=== PATIENT | male | born 1985 | race Caucasian/White ===

== ENCOUNTER 2021-09-19 08:45 | Emergency (ER) | payer OTHER, SELFPAY ==
[2021-09-19 08:52] VITALS: BP 159/87; PULSE 71; RESP 16; TEMP 36.8; O2SAT 98; BMI 24.4
[2021-09-19 09:01] VITALS: BP 159/87; PULSE 71; RESP 16; TEMP 36.8; O2SAT 98
--- NOTE | 2021-09-19 09:08 | CTR_ITS ---
PROCEDURE INFORMATION: Exam: CTA Chest With Contrast Exam date and time: 09/19/2021 10:36 AM Age: 36 years old Clinical indication: Chest pressure and sternal or substernal pain; Additional info: Cp with strong fh of dissection TECHNIQUE: Imaging protocol: Computed tomographic angiography of the chest with contrast. 3D rendering (Not supervised by radiologist): MIP and/or 3D reconstructed images were created by the technologist. Total images: 511 Radiation optimization: All CT scans at this facility use at least one of these dose optimization techniques: automated exposure control; mA and/or kV adjustment per patient size (includes targeted exams where dose is matched to clinical indication); or iterative reconstruction. Contrast material: OMNIPAQUE 350; Contrast volume: 95 ml; Contrast route: INTRAVENOUS (IV); COMPARISON: CR Chest 2 views* [id number] 04/21/2017 1:32 PM RADIATION DOSE METRICS: Total DLP (mGy-cm): 1330.61 FINDINGS: Pulmonary arteries: Pulmonary artery evaluation of good technical quality with no pulmonary artery embolism identified. Aorta: No aortic aneurysm nor dissection. Lungs: Unremarkable. No consolidation. No masses. Pleural spaces: Unremarkable. No pneumothorax. No pleural effusion. Heart: Unremarkable. No cardiomegaly. No pericardial effusion. Lymph nodes: Unremarkable. No enlarged lymph nodes. Bones/joints: Unremarkable. No acute fracture. Soft tissues: Unremarkable. CT/CT angio chest [id number] IMPRESSION: 1. No aortic aneurysm nor dissection. 2. No pulmonary artery embolism identified. 3. No acute process identified.
--- NOTE | 2021-09-19 09:08 | ECG_ITS ---
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 Measurements Intervals [place] Rate: 64 P: 43 LA: 149 QRS: 133 QRSD: 100 T: 56 QT: 398 QTc: 414 Interpretive Statements SINUS RHYTHM INCOMPLETE RIGHT BUNDLE BRANCH BLOCK [90+ ms QRS DURATION, TERMINAL R IN V1/V2, 40+ ms S IN I/aVL/V4/V5/V6] POSSIBLE RIGHT VENTRICULAR HYPERTROPHY [SOME/ALL OF: PROMINENT R IN V1, LATE TRANSITION, RAD, JAIME, SSS] NONSPECIFIC ST ELEVATION [0.05+ mV ST ELEVATION] No previous ECG available for comparison Electronically Signed On 09-19-2021 20:59:24 CDT by Alyssa Killian M.D. [id number] f
--- NOTE | 2021-09-19 09:09 | ED_ITS ---
HPI - Chest Pain General: Chief Complaint: Chest Pain Stated Complaint: Chest Pain Time Seen by Provider: 09/19/21 08:52 History of Present Illness: Patient comes in with chest pain. States he started having midsternal chest pain 2 days ago that has been constant, pressure, worse with swallowing or deep inspiration. States he has a strong family history of coronary artery disease as well as aortic dissection. States that his mother was in her early 50s when she had an aortic dissection. Denies any cold symptoms including no cough, congestion, shortness of breath, vomiting, diarrhea. Associated symptoms: Deny abdominal pain, dyspnea, fever(s), nausea, palpitations or vomiting Review of Systems Const: Denies: fever(s) or body aches Eyes: Denies: change in vision or blurry vision ENMT: Denies: throat pain or odynophagia Card: Reports: chest pain; Denies: palpitations Resp: Denies: dyspnea or productive cough GI: Denies: abdominal pain, nausea or vomiting : Denies: flank pain or dysuria Musc: Denies: neck pain or back pain Skin/Breast: Denies: rash or pruritus Neuro: Denies: headache(s) or numbness in extremities Psych: Denies: anxiety or change in appetite Endo: Denies: polyuria or excessive sweating Physical Exam Const: COMMON NORMALS: no acute distress, patient oriented x3, healthy appearing and alert HENMT: COMMON NORMALS: normocephalic and atraumatic HEAD & SCALP: normocephalic and atraumatic Eye: COMMON NORMALS: Equal, round and reactive pupils present and EOMs intact bilaterally PUPIL: Yes Equal, round and reactive pupils present Neck/C-Spine: COMMON NORMALS: full ROM and supple Resp: COMMON NORMALS: normal respiratory effort, No retractions and No use of accessory muscles Cardio: COMMON NORMALS: regular rate and regular rhythm RATE: regular rate RHYTHM: regular rhythm GI: COMMON NORMALS: Normal to inspection, nondistended, normoactive bowel sounds present, Soft to palpation and non-tender PALPATION: Yes Soft to palpation Back/Pelvis: COMMON NORMALS: thoracic and lumbar spine normal to inspection and no thoracic nor lumbar tenderness Extremity: COMMON NORMALS: normal to inspection and full ROM Neuro: COMMON NORMALS: patient oriented x3 SENSORIUM/ORIENTATION: Yes alert Psych: COMMON NORMALS: mental status grossly normal and cooperative Skin: COMMON NORMALS: no rashes or lesions noted and no wounds GENERAL SKIN EXAM: no rashes or lesions noted Course Vital Signs: Vital signs: Vital Signs Temperature 98.2 F 09/19/21 09:01 Pulse Rate 88 09/19/21 11:06 Respiratory Rate 16 09/19/21 09:38 Blood Pressure 141/73 09/19/21 11:06 Pulse Oximetry 96 09/19/21 11:06 MDM - Chest Pain Medical Decision Making Patient comes in with chest pain. States he started having midsternal chest pain 2 days ago that has been constant, pressure, worse with swallowing or deep inspiration. States he has a strong family history of coronary artery disease as well as aortic dissection. States that his mother was in her early 50s when she had an aortic dissection. Denies any cold symptoms including no cough, congestion, shortness of breath, vomiting, diarrhea. Physical exam is unremarkable. Will check labs, CTA chest, EKG, and reassess. On reassessment I talked to the patient about the test results. Will discharge home at this time with precautions to return for worsening or changing symptoms. Lab Data : 09/19/21 08:59 09/19/21 08:59 Radiology Impressions Chest CTA 09/19/21 09:08 IMPRESSION: 1. No aortic aneurysm nor dissection. 2. No pulmonary artery embolism identified. 3. No acute process identified. Laboratory Results WBC 7.7 10^3/uL (4.0-10.0) 09/19/21 08:59 RBC 4.94 10^6/uL (4.1-5.3) 09/19/21 08:59 Hgb 15.3 g/dL (11.7-16.6) 09/19/21 08:59 Hct 45.3 % (42.0-52.0) 09/19/21 08:59 MCV 91.7 fl (80-94) 09/19/21 08:59 MCH 31.0 pg (28.0-34.0) 09/19/21 08:59 MCHC 33.8 g/dL (30.0-36.0) 09/19/21 08:59 RDW 12.0 % (12.1-15.1) L 09/19/21 08:59 Plt Count 184 10^3/cmm (130-400) 09/19/21 08:59 MPV 10.7 fL (7.4-10.4) H 09/19/21 08:59 Neut % (Auto) 74.0 % 09/19/21 08:59 Lymph % (Auto) 15.8 % 09/19/21 08:59 Desha % (Auto) 7.1 % 09/19/21 08:59 Eos % (Auto) 2.3 % 09/19/21 08:59 Baso % (Auto) 0.5 % 09/19/21 08:59 Neut # (Auto) 5.70 10^3/uL (1.8-7.7) 09/19/21 08:59 Lymph # (Auto) 1.2 10^3/uL (0.8-4.8) 09/19/21 08:59 Desha # (Auto) 0.6 10^3/uL (0.2-0.9) 09/19/21 08:59 Eos # (Auto) 0.2 10^3/uL (0.0-0.8) 09/19/21 08:59 Baso # (Auto) 0.0 10^3/uL (0.0-0.1) 09/19/21 08:59 Nucleated RBC % (auto) 0 % 09/19/21 08:59 Nucleated RBCs # 0.0 /100WBC 09/19/21 08:59 Sodium 140 mmol/L (136-145) 09/19/21 08:59 Potassium 3.8 mmol/L (3.5-5.1) 09/19/21 08:59 Chloride 105 mmol/L (98-107) 09/19/21 08:59 Carbon Dioxide 25 mmol/L (22-29) 09/19/21 08:59 Anion Gap 13.8 (5-19) 09/19/21 08:59 BUN 19 mg/dL (6-20) 09/19/21 08:59 Creatinine 1.0 mg/dL (0.7-1.2) 09/19/21 08:59 GFR Calculation 84.1 mL/min (90-130) L 09/19/21 08:59 Glucose 96 mg/dL (65-115) 09/19/21 08:59 Calculated Osmolality 292 mOsm/kg (285-295) 09/19/21 08:59 Calcium 9.0 mg/dL (8.5-10.5) 09/19/21 08:59 Total Bilirubin 0.6 mg/dL (0.15-1.2) 09/19/21 08:59 AST 12 U/L (0-40) 09/19/21 08:59 ALT 12 U/L (0-41) 09/19/21 08:59 Alkaline Phosphatase 76 IU/L (40-130) 09/19/21 08:59 Troponin T Baseline 9 ng/L (0-15) 09/19/21 08:59 Total Protein 6.6 g/dL (6.6-8.7) 09/19/21 08:59 Albumin 4.6 g/dL (3.5-5.2) 09/19/21 08:59 Globulin 2.0 g/dL (1.3-4.6) 09/19/21 08:59 EKG Data EKG 1: I personally reviewed and interpreted this EKG as follows: EKG interpretation date: 09/19/21 EKG interpretation time: 09:07 Interpretation: EKG done at 9:06 AM and interpreted at 9:07 AM shows sinus rhythm, incomplete right bundle branch block, no ST segment elevation, rate of 64 bpm Discharge Plan Discharge Patient Disposition: Home Clinical Impression: Nonspecific chest pain Condition: Stable Prescriptions: No Action pantoprazole 40 mg Tablet,Delayed Release (Dr/Ec) 40 mg PO BID PRN (Reason: Acid Reflux) 0RF zolpidem 10 mg tablet 10 mg PO BEDTIME PRN (Reason: Insomnia) 0RF fluticasone propionate 50 mcg/actuation spray,suspension 2 spray INTRANASAL DAILY PRN (Reason: Nasal Congestion) 0RF Discharge Orders: Discharge ED (Routine); Ordered 09/19/21 Ordered By: Khalif Pittman Coding Level of Care Code 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
[2021-09-19 09:16] LABS: Basophils % 0.5 %; Eosinophils # 0.2 10^3/uL (0.0-0.8); Eosinophils % 2.3 %; Hematocrit 45.3 % (42.0-52.0); Hemoglobin 15.3 g/dL (11.7-16.6); Lymphocytes # 1.2 10^3/uL (0.8-4.8); Lymphocytes % 15.8 %; Mean Corpuscular HGB Conc 33.8 g/dL (30.0-36.0); Mean Corpuscular Volume 91.7 fl (80-94); Mean Platelet Volume 10.7 fL (7.4-10.4); Monocytes # 0.6 10^3/uL (0.2-0.9); Monocytes % 7.1 %; Nucleated Red Blood Cells % 0 %; Platelet Count 184 10^3/cmm (130-400); Red Blood Count 4.94 10^6/uL (4.1-5.3); White Blood Count 7.7 10^3/uL (4.0-10.0)
[2021-09-19 09:30] LABS: Troponin(5th) Baseline 9 ng/L (0-15)
[2021-09-19 09:35] LABS: Alanine Aminotransferase 12 U/L (0-41); Albumin Level 4.6 g/dL (3.5-5.2); Alkaline Phosphatase 76 IU/L (40-130); Anion Gap 13.8 (5-19); Aspartate Amino Transferase 12 U/L (0-40); Blood Urea Nitrogen 19 mg/dL (6-20); Carbon Dioxide 25 mmol/L (22-29); Chloride 105 mmol/L (98-107); Creatinine Clr Calc Pharmacy 110.0549; Glomerular Filtration Rate 84.1 mL/min (90-130); Glucose 96 mg/dL (65-115); Osmolality Calculated 292 mOsm/kg (285-295); Potassium 3.8 mmol/L (3.5-5.1); Sodium 140 mmol/L (136-145); Total Bilirubin 0.6 mg/dL (0.15-1.2); Total Protein 6.6 g/dL (6.6-8.7)
[2021-09-19 09:38] VITALS: BP 128/74; PULSE 63; RESP 16; O2SAT 96
[2021-09-19] MEDS: iohexol 350 mg/mL 100 mL Btl IV (10:47)
[2021-09-19 11:06] VITALS: BP 141/73; PULSE 88; O2SAT 96
--- NOTE | 2021-09-19 11:08 | ECG_ITS ---
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 Measurements Intervals [place] Rate: 56 P: 61 RI: 161 QRS: 131 QRSD: 97 T: 61 QT: 409 QTc: 396 Interpretive Statements SINUS BRADYCARDIA WITH SINUS ARRHYTHMIA POSSIBLE RIGHT VENTRICULAR HYPERTROPHY [SOME/ALL OF: PROMINENT R IN V1, LATE TRANSITION, RAD, JAIME, SSS] Compared to ECG 09/19/2021 09:06:58 Sinus rhythm no longer present Incomplete right bundle-branch block no longer present ST (T wave) deviation no longer present Electronically Signed On 09-19-2021 21:01:32 CDT by Alyssa Killian M.D. [id number]
[2021-09-19 11:37] VITALS: BP 114/79; PULSE 72; O2SAT 96
[2021-09-19 11:41] LABS: Troponin 5 2HR 7.54 ng/L (0-15)
[2021-09-19 11:47] LABS: Troponin 5 2HR Delta -1.46 ABS# (0-10)
--- NOTE | 2021-09-19 15:08 | ECG_ITS ---
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 Measurements Intervals [place] Rate: 57 P: 55 CA: 152 QRS: 169 QRSD: 100 T: 55 QT: 433 QTc: 425 Interpretive Statements SINUS BRADYCARDIA INDETERMINATE AXIS LEFT POSTERIOR FASCICULAR BLOCK [QRS AXIS > 109, INFERIOR Q] Compared to ECG 09/19/2021 09:06:58 Indeterminate axis now present Left posterior fascicular block now present Sinus rhythm no longer present Incomplete right bundle-branch block no longer present Atrial abnormality no longer present ST (T wave) deviation no longer present Electronically Signed On 09-19-2021 21:02:02 CDT by Alyssa Killian M.D. [id number]
== END 2021-09-19 11:35 | disposition home or self-care (01) ==
PROVIDERS: Emergency Provider Emergency Medicine
DX: R07.89 Other chest pain (principal)
CPT/HCPCS: 36415; 71275; 80053; 84484; 85025; 93005; 99285; Q9967

== ENCOUNTER → 2021-11-16 08:31 | Outpatient (BNVA) | payer OTHER, SELFPAY | PROVIDERS: PCP Family Medicine; Visit Provider Family Medicine | DX: Z00.00 Encounter for general adult medical examination without abnormal findings (principal); Z13.6 Encounter for screening for cardiovascular disorders; R51.9 Headache, unspecified; G47.33 Obstructive sleep apnea (adult) (pediatric) | CPT/HCPCS: 80053; 80061; 85025 ==

== ENCOUNTER 2022-01-17 11:48 | Outpatient (CLI) | payer OTHER, SELFPAY | END 2022-01-17 11:49 | disposition home or self-care (01) | LOC: SLEEP 01-18 11:51 | PROVIDERS: PCP Family Medicine; Visit Provider Family Medicine | DX: G47.33 Obstructive sleep apnea (adult) (pediatric) (principal); R51.9 Headache, unspecified | CPT/HCPCS: G0399 ==

== ENCOUNTER 2022-09-23 12:43 | Outpatient (CLI) | payer OTHER, SELFPAY ==
--- NOTE | 2022-09-23 12:59 | XR_ITS ---
WS: [id number] EXAMINATION: XR cervical spine 3V* [id number] Cervical spine 3 views REASON FOR EXAM: headaches, muscle tightness COMPARISON: None available. FINDINGS: There is no sign of acute fracture or subluxation. Vertebral body heights and intervertebral disc sp aces are maintained. The cervical bony alignment and osseous densities appear normal. There is no p revertebral soft tissue change. XR/XR cervical spine 3V* [id number] IMPRESSION: No acute osseous abnormality.
== END 2022-09-23 12:44 | disposition home or self-care (01) ==
PROVIDERS: PCP Family Medicine; Visit Provider Family Medicine
DX: R51.9 Headache, unspecified (principal); R29.898 Other symptoms and signs involving the musculoskeletal system
CPT/HCPCS: 72040